=== PATIENT | male | born 1950 | race Caucasian/White ===

== ENCOUNTER → 2018-02-05 | Outpatient (CLI) | payer OTHER, MEDICARE | LOC: BHLMT 13:30 | PROVIDERS: ATTEND Internal Medicine Interventional Cardiology | DX: I34.0 Nonrheumatic mitral (valve) insufficiency (principal); I35.1 Nonrheumatic aortic (valve) insufficiency; I51.7 Cardiomegaly; I10 Essential (primary) hypertension; I45.81 Long QT syndrome | CPT/HCPCS: 93005-PO ==

== ENCOUNTER → 2018-02-26 | Outpatient (CLI) | payer OTHER, MEDICARE | LOC: BHLMT 13:15 | PROVIDERS: ATTEND Internal Medicine Cardiovascular Disease | DX: I34.0 Nonrheumatic mitral (valve) insufficiency (principal); I10 Essential (primary) hypertension; R60.9 Edema, unspecified | CPT/HCPCS: 93306-PO ==